=== PATIENT | male | born 1975 | race Native Hawaiian/Other Pacific Islander ===

== ENCOUNTER → 2019-07-04 11:55 | Outpatient (CLI) | payer OTHER, SELFPAY ==
--- NOTE | 2019-07-04 | DI.RAD.S_ITS ---
PROCEDURE: FL ARTHROGRAM SHOULDER LT INDICATIONS: PAIN IN LEFT SHOULDER AND KNEE LOW BACK PAIN TECHNIQUE: The indications, alternatives, benefits, risks, and complications of the procedure were explained to the patient. Written informed consent was obtained and placed in the chart. The shoulder was examined fluoroscopically and a site for needle placement chosen for entry into the glenohumeral joint from an anterior approach. The skin was prepped and draped in a sterile fashion, and 1% lidocaine infiltrated from skin down to joint capsule. A spinal needle was inserted into the glenohumeral joint, and a small amount of iodinated contrast media injected to confirm intra-articular placement of the needle tip. This was followed by approximately 12 mL dilute solution of a gadolinium containing MR contrast agent. The needle was removed and a dressing was applied. The patient was given postprocedural instructions and sent to the MR suite for MR imaging. FINDINGS: A single fluoroscopic spot image demonstrates intra-articular location of injected iodinated contrast. IMPRESSION: Successful fluoroscopically guided administration of dilute Gadolinium solution into the shoulder joint for MR arthrogram. Dictated by: Lance Echevarria M.D. on 07/04/2019 at 14:36 Approved by: Lance Echevarria M.D. on 07/04/2019 at 14:36
== END ==
PROVIDERS: Referring Provider Registered Nurse Diabetes Educator; Visit Provider Registered Nurse Diabetes Educator
DX: M25.512 Pain in left shoulder (principal); M25.562 Pain in left knee; M54.5 Low back pain
CPT/HCPCS: 23350; 73040; 77002